=== PATIENT | female | born 1990 | race Caucasian/White ===

== ENCOUNTER → 2020-02-15 | Outpatient (CLI) | payer MEDICAID, SELFPAY ==
[2020-02-15 13:39] VITALS: BMI 38.6
[2020-02-15 14:28] LABS: Absolute Lymphocyte Count 2.33 X10^3/uL (0.83-4.51); Absolute Neutrophil Count 6.1 X10^3/uL (2.0-7.7); Basophil# 0.11 X10^3/uL; Basophil% 1.1 % (0-1); Eosinophil# 0.41 X10^3/uL; Eosinophils% 4.3 % (0-5); Hematocrit 44.9 % (37-47); Hemoglobin 14.7 g/dL (12.0-15.0); Lymphocyte # 2.33 X10^3/ul (4.0); Lymphocyte % 24.2 % (19-41); Mean Corp Hgb Conc 32.7 g/dL (32-36); Mean Corpuscular Hgb 28.9 pg (27.0-32.0); Mean Corpuscular Volume 88.4 fL (81-99); Mean Platelet Vol. 12.9 fl (6.2-12.0); Monocyte# 0.67 X10^3/uL; NRBC Flagged by Analyzer 0 % (0-5); Neutrophil # 6.05 X10^3/uL (2.7-7.7); POSITIVE MORPHOLOGY YES; Platelet Count 220 K/mm3 (150-450); RBC Distribution Width CV 13.3 % (11.6-14.6); RBC Distribution Width SD 43.1 fl (35.1-43.9); Red Blood Count 5.08 M/mm3 (4.2-5.4); White Blood Count 9.6 K/mm3 (4.4-11.0)
[2020-02-15 14:38] LABS: Differential Indicated SCAN CRITERIA MET
[2020-02-15 14:52] LABS: Thyroid Stim Hormone (TSH) 1.28 uIU/mL (0.358-3.74)
[2020-02-15 15:01] LABS: Platelet Estimate ADEQUATE (ADEQ); Red Cell Morphology NORM C+C NORMAL (NORM C&C)
== END | disposition home or self-care (01) ==
LOC: PAVLAB 14:11
PROVIDERS: Referring Provider Obstetrics & Gynecology; Visit Provider Obstetrics & Gynecology
DX: N93.9 Abnormal uterine and vaginal bleeding, unspecified (principal)
CPT/HCPCS: 36415; 84443; 85025

== ENCOUNTER 2020-03-15 06:39 | Day surgery (SDC) | payer MEDICAID, SELFPAY ==
[2019-04-15 09:44] VITALS: BMI 38.6
[2020-02-15 13:39] VITALS: BMI 38.6
[2020-03-10 09:29] LABS: Magnesium 2.3 mg/dL (1.6-2.6)
[2020-03-15] VITALS (11 sets, daily range): BP systolic 110–128; BP diastolic 62–91; PULSE 74–115; RESP 16–18; TEMP 36.3–36.9; O2SAT 95–100; BMI 39.2
--- NOTE | 2020-03-15 06:44 | PCM.HPOB.BLA ---
- Problem List (1) Abnormal uterine bleeding Status: Acute Comment: failed medical management plan LAVH BS cysto. 10 cm uterus 3 cm. fiance- Gerry. Mom- Sara (2) PCOS (polycystic ovarian syndrome) Status: Acute Comment: labs ordered. handouts given education reviewed. (3) Uterine fibroid Status: Acute Comment: 3 cm- unclear exact location, failed OCP and lysteda, plan lavh. History and Physical Date of Admission: 03/15/20 Intake Vital Signs 02/15/20 BMI 38.6 02/15/20 Height 5 ft 2 in 02/15/20 Weight: 212 lb 02/15/20 BMI 38.7 02/15/20 BP 110/70 Intake Visit Reasons: pre op ERAS LAVH BS CYSTO Chief Complaint: pre op LAVH BS Cysto [employer] Required: No Is patient in pain?: No Allergies amoxicillin Allergy (Mild, Verified 02/15/20 13:38) other ampicillin Allergy (Mild, Verified 02/15/20 13:38) other latex Allergy (Mild, Verified 02/15/20 13:38) other penicillin G Allergy (Mild, Verified 02/15/20 13:38) other Medications multivitamin,lr-ridh-jzqrlayx 1 tab PO DAILY 02/15/20 [History] Is last menstrual period known: No Post menopausal: No Patient : No : [facility] History delivery delivered (Acute) Family History Father Myocardial infarction Grandmother Heart disease Social History (Updated 02/15/20 @ 14:[address] Alexa Francis MD) Smoking Status: Heavy Smoker (>10/day) alcohol intake: never substance use type: does not use caffeine: Yes what type of physical activity do you participate in: walking seatbelt use: always do you feel safe at home: Yes additional social history: Engaged- Andrea, works at [employer] Patient works at [employer] pre op ERAS LAVH BS CYSTO: Details: JOSE MONROY is a 29 year old who presents for AUB, has failed medical management with ocp and lysteda. she has had persistent heavy bleeding although bleeding is now only once a month. she is wanting to proceed with surgical intervention. she has significant dysmenorrhea the first few days and then it resolves. she is not currently on medicine for pain with menses or bleeding. She takes an occasional tylenol or motrin. Female Reproductive History Cycle Length: 21-35 Bleeding Duration: 8 Questions: Metorrhagia: No, Sexually active: Yes, Dyspareunia: No, PCB: No Menopausal Symptoms: No night sweats Pregancy History 2 Elective abortions Hx Para 1 Spontaneous abortions 1 Hx # Term Pregnancies Ectopic pregnancies Hx # Pregnancies Multiple births # of living children 1 Past Pregnancies Del. Date Name GA/Weeks Outcome Route Bth Weight Gen Labor Lgth Anesthesia Del Locatn Provider FOB Unknown 2012 Rosalie live - full term 7lbs 7oz Female spinal ROS Const Constitutional: Denies fatigue, night sweats, weight gain or weight loss ENT ENT: Reports system reviewed and no additional complaints, except as docu and other (headaches) Cardio Card: Denies chest pain Resp Resp: Denies cough or dyspnea GI GI: Reports as per HPI; denies constipation, nausea or vomiting : Reports as per HPI; denies nipple discharge, vaginal discharge, vaginal dryness, vaginal odor or vaginal itching Musc Musc: Denies joint pain, back pain or muscle weakness Skin Skin/Breast: Reports change in hair and excessive hair growth; denies hair loss, dry skin, breast lump, breast pain, breast skin changes or nipple discharge Neuro Neuro: Reports system reviewed and no additional complaints, except as docu Psych Psych: Reports system reviewed and no additional complaints, except as docu Endo Endo: Denies cold intolerance, excessive sweating, heat intolerance or increased thirst Aydin/Lymph Hematologic/Lymphatic: Denies easy bleeding, Denies easy bruising, Denies enlarged lymph nodes Exam Const General: cooperative, healthy appearing, comfortable, no acute distress, well developed Orientation: alert HENNJ Head: normal to inspection, normocephalic Ears: hearing grossly normal bilaterally, external ears normal Nose: external nose normal, nares normal Face and sinus: normal facial exam Neck Neck: normal visual inspection, no lymphadenopathy Thyroid: thyroid normal Chest Chest palpation & inspection: normal inspection of the chest Resp Effort & Inspection: normal respiratory effort Auscultation: clear to auscultation bilaterally Cardio Rate: regular rate Rhythm: regular rhythm Heart Sounds: S1 normal, S2 normal GI Inspection: normal to inspection, non-distended Palpation: soft, no hepatosplenomegaly Musc Other: gross motor intact no deficits, full bilateral strength Skin General: no rashes or lesions noted Neuro General: alert, awake, moves all extremities, no focal motor deficits Motor: muscle tone normal throughout Extrem General: normal to inspection, no pedal edema Psych Appearance: grossly normal Mental Status: mental status grossly normal Affect: normal affect Speech and Movement: speech and movement normal Assessment & Plan Problems 1. PCOS (polycystic ovarian syndrome) E28.2 labs ordered. handouts given education reviewed. 2. Abnormal uterine bleeding N93.9 failed medical management plan LAVH BS cysto. 10 cm uterus 3 cm. fiance- Gerry. Mom- Sara 3. Uterine fibroid D25.9 3 cm- unclear exact location, failed OCP and lysteda, plan lavh. Plan After discussing the patient's diagnosis and treatment plan options, patient wishes to proceed with surgical management. I have discussed with the patient the risks, benefits, and alternatives of the procedure which include but are not limited to risks of anesthesia, bleeding, infection, possible damage to bowel, bladder, or surrounding vasculature which could lead to additional surgery to evaluate any complications. Patient agrees to procedure and wishes to proceed. ACOG/uptodate references given for additional information regarding procedure. UPDATE- I have seen the patient and performed any clinically relevant updates to the history and physical exam. Alexa Francis MD
[2020-03-15] MEDS: dexAMETHasone 10 MG/ML Vial 8 MG IV (07:00)
[2020-03-15 07:30] LABS: Internal QC Validated? YES +Cl - CLEAR BKGD; Pregnancy, Urine Negative Negative
[2020-03-15] MEDS: Lactated Ringers 1,000 ML 40 ML IV (07:48)
[2020-03-15] MEDS: Acetaminophen 500 MG Tablet 1000 MG PO ×3 (08:00→21:06)
[2020-03-15] MEDS: Phenazopyridine 95 MG Tablet 190 MG PO (08:00)
[2020-03-15] MEDS: Scopolamine 1mg/72hr Patch 1 PATCH TRANSDERM. (08:02)
[2020-03-15] MEDS: Celecoxib 200 MG Capsule 400 MG PO (08:06)
[2020-03-15] MEDS: Enoxaparin 40 MG/0.4 ML Syringe SC (08:36)
--- NOTE | 2020-03-15 09:00 | HYST_PTH ---
PATIENT: JOSE MONROY LOC: [facility] [place] U#:[id number] AGE/SX: 29/F ROOM: RE03/15/[address]: Dr. Alexa Francis MD : 1990 BED: DIS: 03/16/2020 SPEC #: [id number] RECD: 03/15/20 13:11 STATUS: SUNIL RAMAKRISHNA #: [id number] GIULIA: 03/15/20 09:[address]: Alexa Francis DEPT: SURGICAL PATHOLOGY RECD BY: Miranda Delgado ENTERED: 03/16/20 07:03 SP TYPE: HYSTERECT OTHR DR: No Primary Care Phys Tissues: Uterus, NOS Procedures: Surgery Specimen Level V HEADER OPERATION: ERAS, hysterectomy, LAVH, salpingectomy PRE-OP DIAGNOSIS: Abnormal uterine bleeding; PCOS; uterine fibroid TISSUE SUBMITTED: Uterus, bilateral fallopian tubes MICROSCOPIC DIAGNOSIS Uterus, hysterectomy: Cervix - minimal chronic inflammation. Endometrium - proliferative endometrium and recent stromal hemorrhage. Myometrium - no pathologic change. Right fallopian tube - benign paratubal cyst. Left fallopian tube - no pathologic change. AM:bryan 03/17/20 MICROSCOPIC DESCRIPTION Slides are reviewed. GROSS DESCRIPTION Received in fixative is one container labeled with the patient's name and designated uterus and bilateral fallopian tubes. The specimen consists of a hysterectomy specimen consisting of uterus with cervix, attached left fallopian tube and attached portion of the right fallopian tube and detached portion of right fallopian tube. The uterus with cervix weighs 91 gm and measures 10 x 6 x 4 cm. The serosal surface is becerra, glistening. The ectocervical mucosa is focally ragged. No distinct lesion is identified. The endocervical canal measures 4.5 cm in length and the endocervical mucosa is unremarkable. The triangular endometrial cavity measures 4.5 cm in length and up to 3 cm in width. The endometrial cavity is filled with hemorrhagic material. The endometrium is becerra, glistening without any mass lesion and measures 0.2 cm in thickness. Sections of the uterine wall do not reveal any mass lesion and measures up to 2 cm in thickness. The attached portion of right fallopian tube measures 4 cm in length and 0.4 cm in diameter. The detached portion of right fallopian tube measures 5 cm in length and up to 0.5 cm in diameter. The fimbrial end is identified. A paratubal cyst is also noted measuring 0.5 cm in greatest dimension. Sections do not reveal any mass lesion. The left fallopian tube measures 6.5 cm in length and 0.5 cm in diameter. Sections reveal unremarkable cut surfaces. Industrial Engineering Technician sections are submitted in eight cassettes as follows: 1 - anterior cervix, 2 - posterior cervix, 3 & 4 - anterior uterine wall, 5 & 6 - posterior uterine wall, 7 - right fallopian tube, 8 - left fallopian tube. / SJ:rg 03/16/20 TC:5 CPT: 47770
[2020-03-15 09:11] LABS: Bedside Glucose 69 mg/dL (70-110)
--- NOTE | 2020-03-15 09:13 | SUR.PREOP ---
PATIENT WAS ATTEMPTED TO SWALLOW THE GABAPENTIN SO THIS NURSE LEFT A NOTE FOR THE SURGERY TEAM ON TOP OF THE CHART.
[2020-03-15] MEDS: Lubricating Jelly 60 GM Tube 30 GM TOPICAL (09:42)
[2020-03-15] MEDS: Bupivacaine 0.25% 30 ML Vial (09:50)
[2020-03-15] MEDS: Vasopressin 20 UNITS/ML Vial (10:50)
[2020-03-15] MEDS: Lactated Ringers 1,000 ML 70 ML IV ×2 (11:00→13:34)
[2020-03-15] MEDS: Ondansetron 4 MG/2 ML Vial IV (11:07)
--- NOTE | 2020-03-15 12:29 | PCM.OPRPT ---
Problem List (1) Abnormal uterine bleeding Status: Acute Comment: failed medical management plan LAVH BS cysto. 10 cm uterus 3 cm. fiance- Gerry. Mom- Sara (2) PCOS (polycystic ovarian syndrome) Status: Acute Comment: labs ordered. handouts given education reviewed. (3) Uterine fibroid Status: Acute Comment: 3 cm- unclear exact location, failed OCP and lysteda, plan lavh. Report of Operation Date of Procedure: 03/15/20 Pre-Operative Diagnosis: aub uterine fibroids Post-Operative Diagnosis: same Surgery/Procedure Performed:: lavh bs cysto Description of Surgical Findings:: vesicouterine scar tissue, limited vaginal access surfacing technician: Honorio Wilkins Type of Anesthesia:: General Special Medications: hillary floseal Specimen's removed: uterus tubes Drains: burroughs Estimated Blood Loss (mL): 100 Fluids Replaced: crystalloid Description of Procedure: Patient received preoperative antibiotics and SCDs were on preoperatively. Patient was taken back to the operating room and placed in the dorsal lithotomy position. General anesthesia was induced and patient was prepped and draped in normal sterile fashion. Uterine manipulator was placed inside the uterus and Burroughs catheter placed in the bladder. The umbilicus was grasped with towel clamps and an intraumbilical incision was made after injecting with quarter percent Marcaine and a Veress needle entered into the abdomen confirmed to be intra-abdominal with a low opening pressure. Abdomen was insufflated with CO2 gas and the Veress needle removed and the 5 mm trocar was placed under direct visualization without complication. Right and left lower quadrants were transilluminated and injected with quarter percent Marcaine and 5 mm ports placed under direct visualization. Pelvis was well visualized see operative findings for additional information. Bilateral fallopian tubes were identified and transected with the LigaSure device across the mesosalpinx to the level of the utero-ovarian ligament which was also transected with the LigaSure device. The broad ligament was opened up by transecting the round ligament bilaterally and skeletonizing the uterine vessels bilaterally and creating a bladder flap using the LigaSure device. The uterine arteries were transected bilaterally with good visualization of the bladder and the ureters were seen to be inferior lateral to the operative area. Attention was then paid to the vaginal portion of the procedure and the cervix was grasped with Sommer clamps and circumferentially injected with dilute vasopressin. A circumferential incision was made and the vaginal mucosa was mobilized off posteriorly and the cul-de-sac entered into sharply and a longneck speculum placed. The anterior cul-de-sac was then identified and entered into sharply. The uterosacral ligaments were clamped cut and suture ligated with 0 Monocryl bilaterally followed by the cardinal ligaments which were clamped cut and suture ligated bilaterally with 0 Monocryl. The uterus serially descended and was removed without difficulty with minimal morcellation. Pelvic sidewall pedicles were checked and noted to have excellent hemostasis. The vaginal mucosa was reapproximated incorporating the posterior peritoneum. This was reapproximated using 0 Vicryl irhjfq-de-qpvjf sutures. Excellent hemostasis was noted. The cystoscopy was then performed and bilateral ureteral strong spray was noted and the bladder was noted to have no abnormality or lesions seen. Burroughs catheter was replaced and then attention paid to the abdominal portion of the procedure again. The pelvis and cul-de-sac was well visualized and no significant active bleeding noted but some raw areas were seen on the peritoneum and therefore Hillary was applied. When pressure was first taken down there was a small amount of oozing from the right calf along the peritoneal edge and therefore FloSeal was applied to the area specifically and pressure was taken down and the areas visualized and noted of excellent hemostasis. All ports were removed under direct visualization without complication and the abdomen was desufflated of air. The instruments removed from the abdomen and the vagina vaginal sweep was negative. Port sites on the abdomen were closed with 4-0 Monocryl interrupted sutures and Steri's and windows were applied. She was awoken and taken recovery in stable condition. Grafts/Implants Used: none - Complications none - Admit VTE Documentation VTE Present on Admission: No VTE Mechan Device Prophylaxis: SCD's Multi Select Codes - Urinary/Genital Urinary/Genital CPT Codes: 38302 Cystoscopy, 21215 LAVH+BS/O <250gr Uterus
--- NOTE | 2020-03-15 12:32 | DCINST_ITS ---
Discharge Diet: No Restrictions Discharge Activity: Return to Normal Activity, May Shower, May Take a Tub Bath Allergies/Adverse Reactions: Allergies amoxicillin Allergy (Mild, Verified 03/15/20 08:08) other ampicillin Allergy (Mild, Verified 03/15/20 08:08) other latex Allergy (Mild, Verified 03/15/20 08:08) other penicillin G Allergy (Mild, Verified 03/15/20 08:08) other Medications to take at Discharge multivitamin,el-zkvq-upgbxfrm 1 tab PO DAILY 02/15/20 Primary Care Physician: Care Physician,No Primary [Primary Care Provider] - Test Results: Test results from this visit will be discussed in further detail at your follow- up appointment, if applicable. Please Follow Up With: Alexa Francis MD - [phone]
[2020-03-15 15:23] LABS: Absolute Lymphocyte Count 1.12 X10^3/uL (0.83-4.51); Absolute Neutrophil Count 15.8 X10^3/uL (2.0-7.7); Basophil# 0.03 X10^3/uL; Basophil% 0.2 % (0-1); Hematocrit 42.4 % (37-47); Hemoglobin 13.5 g/dL (12.0-15.0); Lymphocyte # 1.12 X10^3/ul (4.0); Lymphocyte % 6.4 % (19-41); Mean Corp Hgb Conc 31.8 g/dL (32-36); Mean Corpuscular Hgb 28.8 pg (27.0-32.0); Mean Corpuscular Volume 90.4 fL (81-99); Mean Platelet Vol. 12.5 fl (6.2-12.0); Monocyte# 0.41 X10^3/uL; Monocyte% 2.3 % (0-10); NRBC Flagged by Analyzer 0 % (0-5); Neutrophil # 15.84 X10^3/uL (2.7-7.7); Neutrophil % 90.8 % (47-70); Platelet Count 215 K/mm3 (150-450); RBC Distribution Width CV 12.9 % (11.6-14.6); RBC Distribution Width SD 42.2 fl (35.1-43.9); Red Blood Count 4.69 M/mm3 (4.2-5.4); White Blood Count 17.5 K/mm3 (4.4-11.0)
--- NOTE | 2020-03-15 16:36 | PCM.DC.VHY ---
Discharge Diet: No Restrictions Discharge Activity: Return to Normal Activity, May Shower, May Take a Tub Bath May resume sexual activity in: 6-8 weeks Call your doctor if your incision/area has: Continuous Slow Oozing, Sudden Increased Bleeding, Increased Pain/ Swelling, Increased Redness, Foul Smelling Discharge Call your doctor if you observe: Fever of 101 or Higher, Inability to urinate, Inability to have a bowel movement, Using more than one pad per hour Allergies/Adverse Reactions: Allergies amoxicillin Allergy (Mild, Verified 03/15/20 08:08) other ampicillin Allergy (Mild, Verified 03/15/20 08:08) other latex Allergy (Mild, Verified 03/15/20 08:08) other penicillin G Allergy (Mild, Verified 03/15/20 08:08) other Medications to take at Discharge multivitamin,ax-apna-hdoworoi 1 tab PO DAILY 02/15/20 Naproxen [Naprosyn] 250 - 500 mg PO Q8H PRN PRN #30 tab 03/15/20 Oxycodone HCl/Acetaminophen [Percocet 5-325] 1 - 2 tab PO Q6H PRN PRN 7 Days #15 tab 03/15/20 The following prescriptions were given: Naproxen [Naprosyn] 250 - 500 mg PO Q8H PRN PRN #30 tab PRN Reason: MILD PAIN Transmission Status: Received by [facility] Oxycodone HCl/Acetaminophen [Percocet 5-325] 1 - 2 tab PO Q6H PRN PRN 7 Days #15 tab PRN Reason: Pain Transmission Status: Received by [facility] Primary Care Physician: Care Physician,No Primary [Primary Care Provider] - Test Results: Test results from this visit will be discussed in further detail at your follow-up appointment, if applicable. Please Follow Up With: Alexa Francis MD - [phone]
[2020-03-15] MEDS: oxyCODONE 5 MG Tablet PO (16:44)
[2020-03-15] MEDS: Ketorolac 30 MG/ML Syringe IV (17:41)
[2020-03-15] MEDS: Docusate Sodium 100 MG Capsule PO (21:06)
[2020-03-16] MEDS: Acetaminophen 500 MG Tablet 1000 MG PO ×2 (01:10→08:05)
[2020-03-16] MEDS: Ketorolac 30 MG/ML Syringe IV ×2 (01:10→05:33)
[2020-03-16] MEDS: Lactated Ringers 1,000 ML 70 ML IV (03:56)
[2020-03-16 05:14] VITALS: BP 109/40; PULSE 65; RESP 16; TEMP 37; O2SAT 95
[2020-03-16 05:56] LABS: Hematocrit 38.1 % (37-47); Mean Corp Hgb Conc 31.5 g/dL (32-36); Mean Corpuscular Hgb 28.8 pg (27.0-32.0); Mean Corpuscular Volume 91.4 fL (81-99); Mean Platelet Vol. 12.3 fl (6.2-12.0); Platelet Count 212 K/mm3 (150-450); RBC Distribution Width SD 43.5 fl (35.1-43.9); Red Blood Count 4.17 M/mm3 (4.2-5.4); White Blood Count 13.4 K/mm3 (4.4-11.0)
[2020-03-16 06:45] VITALS: O2SAT 96
--- NOTE | 2020-03-16 07:31 | PCM.PN.OB ---
Patient Problems: Active and Suspected Problems (Last Reviewed 02/15/20 @ 13:39 by Jacinta Jaramillo) Uterine fibroid (Acute) 3 cm- unclear exact location, failed OCP and lysteda, plan lavh. Abnormal uterine bleeding (Acute) failed medical management plan LAVH BS cysto. 10 cm uterus 3 cm. fiance- Gerry. Mom- Sara PCOS (polycystic ovarian syndrome) (Acute) labs ordered. handouts given education reviewed. Subjective: patient recovering well, denies CP, SOB, N, or V. patient is ambulating, voiding ,tolerating adequate po, and pain is controlled with oral medications. - Physical Exam Vitals/I&O's: Vital Signs Temp Pulse Resp BP Pulse Ox 98.6 F 65 16 109/40 L 96 03/16/20 05:14 03/16/20 05:14 03/16/20 05:14 03/16/20 05:14 03/16/20 06:45 Oxygen Flow Rate (L/min) 6 Oxygen Delivery Method Room Air Weight: 214 lb 11.684 oz Body Mass Index (BMI) 39.2 Intake and Output for Last 24 Hours 03/14/20 03/15/20 03/16/20 23:59 23:59 23:59 Intake Total 2868.75 / 2868.75 1600 / 1600 Output Total 2300 / 2300 750 / 750 Balance 568.75 / 568.75 850 / 850 General: Alert, Oriented x3, Cooperative Laboratory Results 03/15/20 07:20: Urine Test Negative 03/15/20 08:15: POC Glucose 69 L 03/15/20 15:04: WBC 17.5 H, RBC 4.69, Hgb 13.5, Hct 42.4, MCV 90.4, MCH 28.8, MCHC 31.8 L, RDW Std Deviation 42.2, RDW Coeff of Paco 12.9, Plt Count 215, MPV 12.5 H, Immature Gran % (Auto) 0.300, Neut % (Auto) 90.8 H, Lymph % (Auto) 6.4 L, [place] % (Auto) 2.3, Eos % (Auto) 0.0, Baso % (Auto) 0.2, Absolute Neuts (auto) 15.8 H, Absolute Lymphs (auto) 1.12, Nucleated RBC % 0 03/16/20 05:30: WBC 13.4 H, RBC 4.17 L, Hgb 12.0, Hct 38.1, MCV 91.4, MCH 28.8, MCHC 31.5 L, RDW Std Deviation 43.5, RDW Coeff of Paco 13.0, Plt Count 212, MPV 12.3 H Current Medications Acetaminophen (Acetaminophen 500 Mg Tablet) 1,000 mg PO Q6H [facility] Last Admin: 03/16/20 01:10 Dose: 1,000 mg Documented by: Docusate Sodium (Docusate Sodium 100 Mg Capsule) 100 mg PO BID [facility] Last Admin: 03/15/20 21:06 Dose: 100 mg Documented by: Lactated Ringer's () 1,000 mls @ 70 mls/hr IV .[id number] [facility] Stop: 03/16/20 12:39 Last Admin: 03/16/20 03:56 Dose: 70 mls/hr Documented by: Sodium Chloride () 250 mls @ 15 mls/hr IV .[id number] PRN PRN Reason: Saline Flush Sodium Chloride () 250 mls @ 15 mls/hr IV .[id number] PRN PRN Reason: Additional IVPB Infusion Influenza Virus Vaccine Quadrival (Influenza Vaccine (6mos+)/Pf 0.5 Ml Syringe) 0.5 ml IM .ONCE ONE Stop: 03/16/20 10:01 Ketorolac Tromethamine (Ketorolac 30 Mg/Ml Syringe) 30 mg IV Q6 [facility] Stop: 03/17/20 00:01 Last Admin: 03/16/20 05:33 Dose: 30 mg Documented by: Magnesium Chloride (Magnesium Chloride 64 Mg Delay Rel.Tablet) 128 mg PO DAILY PRN PRN PRN Reason: Constipation Nutritional Formula (Lactose Free) (Ensure Enlive 120 Ml Liquid) 120 ml PO TIDCM [facility] Ondansetron HCl (Ondansetron Odt 4 Mg Tablet) 4 mg PO Q6H PRN PRN PRN Reason: NAUSEA Oxycodone HCl (Oxycodone 5 Mg Tablet) 5 - 10 mg PO Q4H PRN PRN PRN Reason: Pain Score 4-10 Last Admin: 03/15/20 16:44 Dose: 5 mg Documented by: Sodium Chloride (0.9% Saline Lock 10 Ml Syringe) 10 - 40 ml IV UD PRN PRN Reason: SALINE FLUSH Medical Necessity - Tobacco Use Smoking Status: Current every day smoker Tobacco Use: Cigarettes Assessment/Plan All Active Problems (Last Reviewed 02/15/20 @ 13:39 by Jacinta Jaramillo) Uterine fibroid (Acute) Abnormal uterine bleeding (Acute) PCOS (polycystic ovarian syndrome) (Acute) patient is s/p [facility] POD 1 1. routine ERAS protocol postop care- increase ambulation, encourage oral intake and oral control of pain. lovenox and scds for dvt prophylaxis, patient stable for discharge to home.
[2020-03-16 07:45] VITALS: BP 130/79; PULSE 64; RESP 16; TEMP 36.4; O2SAT 95
[2020-03-16] MEDS: Docusate Sodium 100 MG Capsule PO (08:06)
== END 2020-03-16 10:17 | disposition home or self-care (01) ==
LOC: SDC 06:40 → AC 06:40 → MS3 12:20
PROVIDERS: Anesthesiology; Referring Provider Obstetrics & Gynecology; Visit Provider Obstetrics & Gynecology
PROC: 0UT9FZZ Resection of Uterus, Via Natural or Artificial Opening With Percutaneous Endoscopic Assistance (ICD-10-PCS; CPT 52000; principal; 2020-03-15 08:35)
DX: N72 Inflammatory disease of cervix uteri (principal); N83.8 Other noninflammatory disorders of ovary, fallopian tube and broad ligament; D25.9 Leiomyoma of uterus, unspecified; F17.210 Nicotine dependence, cigarettes, uncomplicated; Z11.59 Encounter for screening for other viral diseases
CPT/HCPCS: 52000; 58552; 36415; 81025; 82962; 83735; 85025; 85027; 86850; 86900; 86901; 87635; 88307; 97802; 99251; 99406; J7120; 90686; G0463; J2405; U0003

== ENCOUNTER → 2021-05-01 10:58 | Outpatient (CLI) | payer MEDICAID, SELFPAY ==
[2021-05-01 12:06] LABS: Thyroid Stim Hormone (TSH) 0.93 uIU/mL (0.358-3.74)
[2021-05-09 12:23] LABS: Testosterone Free 3.9 pg/mL (0.0-4.2)
== END ==
PROVIDERS: Referring Provider Obstetrics & Gynecology; Visit Provider Obstetrics & Gynecology
DX: E28.2 Polycystic ovarian syndrome (principal)
CPT/HCPCS: 36415; 82627; 84402; 84443; 82626

== ENCOUNTER → 2021-05-04 09:56 | Outpatient (CLI) | payer MEDICAID, SELFPAY ==
--- NOTE | 2021-05-04 09:59 | US_ITS ---
STUDY: THYROID ULTRASOUND REASON FOR EXAM: Female, 30 years old. Thyromegaly TECHNIQUE: Ultrasound evaluation of the thyroid was performed with real-time and static kamara-scale imaging. COMPARISON: None. FINDINGS: RIGHT LOBE: The right lobe of the thyroid gland is enlarged and measures 5.5 cm x 1.7 cm x 1.5 cm. There is a homogeneous echotexture. There are no demonstrated solid, cystic or complex lesions. LEFT LOBE: The left lobe of the thyroid gland is mildly enlarged and measures 5 cm x 2.1 cm x 1.3 cm. There is a homogeneous echotexture. There is a 3 mm x 2 mm x 2 mm hypoechoic nodule in the upper pole. ISTHMUS: The isthmus measures 3.3 mm. The regional lymph nodes are normal. US/Thyroid IMPRESSION: Mild thyroid enlargement. 3 mm x 2 mm x 2 mm hypoechoic nodule in the upper pole of the left lobe. Electronically Signed: Feliz Rangel MD at 14:48 EST , Service support ,
== END ==
PROVIDERS: Referring Provider Obstetrics & Gynecology; Visit Provider Obstetrics & Gynecology
DX: E01.0 Iodine-deficiency related diffuse (endemic) goiter (principal)
CPT/HCPCS: 76536

== ENCOUNTER → 2021-05-08 10:14 | Outpatient (CLI) | payer MEDICAID, SELFPAY ==
[2021-05-08 12:22] LABS: Absolute Lymphocyte Count 2.03 X10^3/uL (0.83-4.51); Absolute Neutrophil Count 5.1 X10^3/uL (2.0-7.7); Basophil# 0.06 X10^3/uL; Basophil% 0.8 % (0-1); Eosinophil# 0.17 X10^3/uL; Eosinophils% 2.2 % (0-5); Hematocrit 45.3 % (37-47); Hemoglobin 14.8 g/dL (12.0-15.0); Lymphocyte # 2.03 X10^3/ul (0.83-4.51); Lymphocyte % 26.1 % (19-41); Mean Corp Hgb Conc 32.7 g/dL (32-36); Mean Corpuscular Hgb 29.4 pg (27.0-32.0); Mean Corpuscular Volume 90.1 fL (81-99); Mean Platelet Vol. 12.7 fl (6.2-12.0); Monocyte# 0.43 X10^3/uL; Monocyte% 5.5 % (0-10); NRBC Flagged by Analyzer 0 % (0-5); Neutrophil # 5.08 X10^3/uL (2.7-7.7); Neutrophil % 65.1 % (47-70); Platelet Count 229 K/mm3 (150-450); RBC Distribution Width CV 12.2 % (11.6-14.6); Red Blood Count 5.03 M/mm3 (4.2-5.4); White Blood Count 7.8 K/mm3 (4.4-11.0)
[2021-05-08 12:44] LABS: Hemoglobin A1c 5.2 % (3.8-5.6)
[2021-05-08 12:52] LABS: AST(SGOT) 11 U/L (15-37); Alanine Aminotransfer ALT/SGPT 26 U/L (13-56); Albumin, Serum 3.9 g/dL (3.2-5.0); Alkaline Phosphatase 41 U/L (45-117); Anion Gap 5 (5-15); BUN 13 mg/dL (7-18); BUN/Creat Ratio 17.8 RATIO (10-20); Calcium,Total 9.3 mg/dL (8.5-10.1); Chloride 110 mmol/L (98-107); Cholesterol 208 mg/dL (200); Creatinine, Serum 0.73 mg/dL (0.55-1.02); EST Glomerular Filtration Rate 99 mL/min (>60); Est Glom Filt Rate - Afr Amer 119 mL/min (>60); Globulin 3.9 g/dL (2.2-4.2); Glucose 94 mg/dL (74-106); High Density Lipoprotein 54 mg/dL; Potassium 3.9 mmol/L (3.5-5.1); Protein, Total 7.8 g/dL (6.4-8.2); Sodium Level 141 mmol/L (136-145); Triglycerides 137 mg/dL; Very Low Density Lipoprotein 27 mg/dL (5-40)
== END ==
PROVIDERS: PCP Internal Medicine; Visit Provider Internal Medicine
DX: E66.9 Obesity, unspecified (principal); E28.2 Polycystic ovarian syndrome
CPT/HCPCS: 36415; 80053; 80061; 83036; 85025

== ENCOUNTER → 2022-07-11 | Outpatient (CLI) | payer MEDICAID, SELFPAY ==
[2022-07-11 08:54] LABS: Cholesterol 177 mg/dL (200); Glucose 93 mg/dL (74-106); High Density Lipoprotein 54 mg/dL; T4 Free Direct 1.11 ng/dL (0.76-1.46); Thyroid Stim Hormone (TSH) 1.41 uIU/mL (0.358-3.74); Triglycerides 113 mg/dL; Very Low Density Lipoprotein 23 mg/dL (5-40)
[2022-07-11 10:10] LABS: Hemoglobin A1c 5.4 % (3.8-5.6)
[2022-07-12 14:09] LABS: Thyroid Peroxidase AB < 9 IU/mL (0-34)
[2022-07-12 17:24] LABS: Thyroglobulin Antibody < 1.0 IU/mL (0.0-0.9)
== END | disposition home or self-care (01) ==
PROVIDERS: PCP Family Medicine; Referring Provider Obstetrics & Gynecology; Visit Provider Obstetrics & Gynecology
DX: E66.9 Obesity, unspecified (principal); E04.1 Nontoxic single thyroid nodule
CPT/HCPCS: 36415; 80061; 82947; 83036; 84439; 84443; 86376; 86800

== ENCOUNTER → 2022-08-17 | Outpatient (CLI) | payer MEDICAID, SELFPAY ==
--- NOTE | 2022-08-17 16:33 | US_ITS ---
STUDY: THYROID ULTRASOUND REASON FOR EXAM: Female, 31 years old. thyromegaly TECHNIQUE: Ultrasound evaluation of the thyroid was performed with real-time and static kamara-scale imaging. COMPARISON: 05/04/2021 FINDINGS: RIGHT LOBE: The right lobe of the thyroid gland measures 5.5 x 1.9 x 2.1 cm. There is a homogeneous echotexture. Nodule 1: No change in the 12 x 7 x 7 mm solid hypoechoic wider than tall ill-defined margins nodule with no echogenic foci (TR 4) (in the posterior right lobe and follow-up ultrasound is recommended in one year. LEFT LOBE: The left lobe of the thyroid gland measures 5.6 x 1.7 x 1.8 cm. There is a homogeneous echotexture. There are no demonstrated solid, cystic or complex lesions. ISTHMUS: The isthmus measures 5 mm thick. . The regional lymph nodes are normal. US/Thyroid IMPRESSION: No change in the dominant nodule in the posterior right lobe. Follow-up ultrasound is recommended in one year. Electronically Signed: Reinaldo Yeung MD at 16:38 EDT ,
== END | disposition home or self-care (01) ==
LOC: US 16:29
PROVIDERS: PCP Family Medicine; Referring Provider Obstetrics & Gynecology; Visit Provider Obstetrics & Gynecology
DX: E04.1 Nontoxic single thyroid nodule (principal)
CPT/HCPCS: 76536

== ENCOUNTER → 2023-12-21 | Outpatient (CLI) | payer MEDICAID, SELFPAY ==
--- NOTE | 2023-12-21 07:48 | US_ITS ---
INDICATION: recheck nodule found 2022 imaging. EXAMINATION: Ultrasound US Thyroid (eg thyroid, parathyroid, parotid) TECHNIQUE: Ann scale and color doppler imaging was performed of the thyroid gland. COMPARISON: August 17, 2022, May 04, 2021. FINDINGS: RIGHT THYROID LOBE: 5.3 x 1.8 x 1.7 cm. Homogeneous echotexture with normal vascularity. [ Nodules: 1.. Posterior inferior 1.1 x 0.7 x 0.8 cm slightly hypoechoic nodule wider than tall smooth margins and no calcification, TI RAD 4, unchanged from the exam LEFT THYROID LOBE: 5.3 x 1.9 x 1.7 cm. Homogeneous echotexture with normal vascularity. [No thyroid nodules are present. ISTHMUS: 0.4 cm. No thyroid nodules are present. US/Thyroid IMPRESSION: Chronic diffuse thyromegaly Continued stability 1.1 cm posterior inferior right thyroid TI RAD 4 nodule. Two-year follow-up ultrasound is recommended to establish 5 year stability. Given peripheral nature of the nodule would also correlate with serum calcium to assess possibility of parathyroid nodule if not previously performed. No evidence of new or enlarging thyroid nodule. Electronically Signed: Neville Abel MD at 8:33 EDT ,
== END | disposition home or self-care (01) ==
LOC: US 07:46
PROVIDERS: PCP Family Medicine; Referring Provider Nurse Practitioner Family; Visit Provider Nurse Practitioner Family
DX: E04.1 Nontoxic single thyroid nodule (principal)
CPT/HCPCS: 76536

== ENCOUNTER → 2023-12-26 | Outpatient (CLI) | payer MEDICAID, SELFPAY ==
[2023-12-26 09:16] LABS: Calcium,Total 8.8 mg/dL (8.5-10.1); T4 Free Direct 1.04 ng/dL (0.76-1.46); Thyroid Stim Hormone (TSH) 2.19 uIU/mL (0.358-3.74)
== END | disposition home or self-care (01) ==
LOC: PAVLAB 08:21
PROVIDERS: PCP Family Medicine; Referring Provider Nurse Practitioner Family; Visit Provider Nurse Practitioner Family
DX: Z13.29 Encounter for screening for other suspected endocrine disorder (principal); E04.1 Nontoxic single thyroid nodule
CPT/HCPCS: 36415; 82310; 84439; 84443